=== PATIENT | female | born 1970 | race Caucasian/White ===

== ENCOUNTER 2018-04-08 09:21 | Emergency (ER) | payer BC ==
[2018-04-08 09:45] VITALS: BP 141/85
--- NOTE | 2018-04-08 10:58 | UC ---
Upper Extremity HPI - HPI Summary HPI Summary: 47-year-old female presents with right arm pain following a fall 2 days ago. States she tripped on a rug, fell forward landing on her right forearm. States yesterday had minimal pain and was able to work without any difficulty however today developed some swelling, pain in the distal forearm, and some numbness and tingling in her ulnar hand, ring and pinky fingers. Denies hitting head, loss of consciousness, chest pain, palpitations, dizziness, or weakness. - History of Current Complaint Chief Complaint: UCUpperExtremity Stated Complaint: R WRIST INJURY Time Seen by Provider: 04/08/18 10:47 Hx Obtained From: Patient Hx Last Menstrual Period: 03/18/18 ?: No Severity Initially: Mild Severity Currently: Moderate Pain Intensity: 6 Character: Throbbing Aggravating Factor(s): Movement, Lifting Alleviating Factor(s): Ice, Rest Associated Signs And Symptoms: Positive: Swelling, Bruising, Numbness/Tingling. Negative: Redness, Fever, Weakness Related History: Dominant Hand Right - Allergies/Home Medications Allergies/Adverse Reactions: Allergies Allergy/AdvReac Type Severity Reaction Status Date / Time amoxicillin Allergy Vomiting Verified 04/08/18 09:47 ciprofloxacin [From Cipro] Allergy Vomiting Verified 04/08/18 09:47 clavulanic acid Allergy Vomiting Verified 04/08/18 09:47 meperidine [From Demerol] Allergy Hives Verified 04/08/18 09:47 PMH/Surg Hx/FS Hx/Imm Hx Previously Healthy: Yes Endocrine History: Hypothyroidism Respiratory History: Asthma - Surgical History Surgical History: Yes Surgery Procedure, Year, and Place: Back surgery x3, lumbar alminectomy, and fusion 1991, Left humerus fracture, magdiel in place - Family History Family History: Noncontributory - Social History Occupation: Employed Full-time Lives: With Family Alcohol Use: Occasionally Substance Use Type: None Smoking Status (MU): Never Smoked Tobacco - Immunization History Most Recent Influenza Vaccination: 2015/2016 season Review of Systems Constitutional: Negative Skin: Bruising - Proximal ulnar forearm Eyes: Negative Respiratory: Negative Cardiovascular: Negative Motor: Negative Musculoskeletal: Other: - See history of present illness Neurological: Paresthesia - Ulnar right hand, right ring and pinky fingers Is Patient Immunocompromised?: No All Other Systems Reviewed And Are Negative: Yes Physical Exam Triage Information Reviewed: Yes Appearance: Well-Appearing, No Pain Distress, Well-Nourished Vital Signs: Initial Vital Signs Temp 97.9 F 04/08/18 09:42 Pulse 76 04/08/18 09:42 Resp 18 04/08/18 09:42 BP 141/85 04/08/18 09:42 Pulse Ox 100 04/08/18 09:42 Vital Signs Reviewed: Yes Respiratory: Positive: No respiratory distress Cardiovascular: Positive: Pulses Normal, Brisk Capillary Refill Musculoskeletal: Positive: Strength Intact, ROM Intact, Other: - Tenderness, ecchymosis, and mild swelling noted to the proximal right ulnar forearm. Full range of motion to elbow and wrist. No obvious deformity. Neurological: Positive: Alert, Muscle Tone Normal, Other: - Patient reports mildly decreased sensation to light touch to right ring and pinky fingers. Skin: Positive: Other - Bruising as noted above Diagnostics - Radiology No standard instances Xray Interpretation: No Acute Changes Radiology Interpretation Completed By: ED Physician, Radiologist Upper Extremity Course/Dx - Course Course Of Treatment: 47 year old female with right forearm pain s/p fall. Exam revealed large contusion to the proximal ulnar forearm with mild swelling. X- ray negative for fracture. Patient reports some sensation deficit along the ulnar nerve root consistent with a traumatic neuropathy. This is likely self- limiting and will resolve as contusion heals. Recommend conservative management and follow up with PCP if symptoms do not resolve. - Differential Dx/Diagnosis Provider Diagnoses: right forearm contusion, elevated blood pressure reading Discharge - Sign-Out/Discharge Documenting (check all that apply): Patient Departure All imaging exams completed and their final reports reviewed: Yes - Discharge Plan Condition: Stable Disposition: HOME Patient Education Materials: Contusion in Adults (ED) Referrals: Maurice Gonzalez MD [Primary Care Provider] - 5 Days (If no improvement) Additional Instructions: Your x-ray performed in the clinic today did not show any evidence of a fracture or dislocation. I suspect that your symptoms are from a contusion ( deep bruise) or possibly a mild sprain. Rest the arm as much as possible. Apply ice for 15-20 minutes 3-4 times a day to help reduce any swelling. X Sure to keep the arm elevated at the level of your heart to help keep swelling down. Use [id number] pain medication such as acetaminophen (Tylenol) or ibuprofen (Advil, Motrin) according to directions as needed for pain. Follow-up with your primary care provider in 5 days if symptoms do not improve. Your blood pressure was elevated in the clinic today. It is recommended that you follow up with your primary care provider within 4 weeks to have this rechecked. Seek immediate medical attention if you develop increased pain that is not managed with [id number] pain medications, worsening of the swelling, he started losing function of the arm wrist or hand, I have any worsening of the numbness and tingling. - Billing Disposition and Condition Condition: STABLE Disposition: Home - Attestation Statements Provider Attestation: Per institutional requirements, I have reviewed the chart, however, I was not consulted specifically or made aware of this patient by the midlevel provider. I did not personally evaluate, interact with , or disposition this patient.
--- NOTE | 2018-04-08 11:23 | RAD ---
HISTORY: pain s/p fall COMPARISONS: None VIEWS: 2 , Frontal and lateral views of the right forearm FINDINGS: BONE DENSITY: Normal. BONES: There is no displaced fracture. JOINTS: There is no arthropathy. ALIGNMENT: There is no dislocation. SOFT TISSUES: Unremarkable. OTHER FINDINGS: None. IMPRESSION: NO ACUTE OSSEOUS INJURY. IF SYMPTOMS PERSIST, RECOMMEND REPEAT IMAGING.
== END 2018-04-08 11:30 | disposition home or self-care (01) ==
LOC: UCEAST 09:21
DX: S50.11XA Contusion of right forearm, initial encounter (principal); W01.0XXA Fall on same level from slipping, tripping and stumbling without subsequent striking against object, initial encounter; Y93.9 Activity, unspecified; Y92.9 Unspecified place or not applicable; R03.0 Elevated blood-pressure reading, without diagnosis of hypertension; Z88.1 Allergy status to other antibiotic agents; Z88.5 Allergy status to narcotic agent; Z88.0 Allergy status to penicillin
CPT/HCPCS: 99211; G0463

== ENCOUNTER 2018-09-19 17:10 | Emergency (ER) | payer BC ==
[2018-09-19 17:44] VITALS: BP 150/103
--- NOTE | 2018-09-19 18:46 | ED ---
Breast Complaint - HPI Summary HPI Summary: 48-year-old female presents with left breast mass that noticed yesterday. She says she did not have a mass the previous weeks. States she's been lifting a lot of things. States she needs to obtain a mammogram this month anyways. Denies any family history of breast cancer. She states that it is tender when she touches it. No fevers. She had some redness last night that has since resolved. No chills. No history of MRSA. Has history of high blood pressure but is not currently on her medications as she ran out. - Allergy/Home Medications Allergies/Adverse Reactions: Allergies Allergy/AdvReac Type Severity Reaction Status Date / Time amoxicillin Allergy Vomiting Verified 09/19/18 17:45 ciprofloxacin [From Cipro] Allergy Vomiting Verified 09/19/18 17:45 clavulanic acid Allergy Vomiting Verified 09/19/18 17:45 meperidine [From Demerol] Allergy Hives Verified 09/19/18 17:45 PMH/Surg Hx/FS Hx/Imm Hx Endocrine/Hematology History: Reports: Hx Thyroid Disease - HYPO Denies: Hx Diabetes Cardiovascular History: Reports: Hx Hypertension - ran out of bp med over one week ago Respiratory History: Reports: Hx Asthma Denies: Hx Chronic Obstructive Pulmonary Disease (COPD) GI History: Denies: Hx Ulcer - Cancer History Cancer Type, Location and Year: Thyroid RADIATION Hx Chemotherapy: No Hx Radiation Therapy: Yes - THYROID - Surgical History Surgery Procedure, Year, and Place: Back surgery x3, lumbar alminectomy, and fusion 1991, Left humerus fracture, magdiel in place Infectious Disease History: No Infectious Disease History: Denies: Hx Hepatitis, Hx Human Immunodeficiency Virus (HIV), History Other Infectious Disease, Traveled Outside the [place] in Last 30 Days - Family History Known Family History: Family History: Noncontributory - Social History Alcohol Use: Occasionally Hx Substance Use: No Substance Use Type: Reports: None Hx Tobacco Use: No Smoking Status (MU): Never Smoked Tobacco Review of Systems Negative: Fever Negative: Chest Pain Negative: Shortness Of Breath Positive: Other - left breast mass All Other Systems Reviewed And Are Negative: Yes Physical Exam Triage Information Reviewed: Yes Vital Signs On Initial Exam: Initial Vitals Temp Pulse Resp BP Pulse Ox 99.4 F 97 12 150/103 99 09/19/18 17:39 09/19/18 17:39 09/19/18 17:39 09/19/18 17:39 09/19/18 17:39 Vital Signs Reviewed: Yes Appearance: Positive: Well-Appearing Skin: Positive: Warm, Dry Head/Face: Positive: Normal Head/Face Inspection Eyes: Positive: Normal, Conjunctiva Clear ENT: Positive: Pharynx normal Respiratory/Lung Sounds: Positive: Clear to Auscultation, Breath Sounds Present , Other - breast mass felt at 12 position that is mobile, no lymphadenopathy, no erythema Cardiovascular: Positive: Normal, RRR Musculoskeletal: Positive: Normal Neurological: Positive: Normal Psychiatric: Positive: Normal Diagnostics - Vital Signs Vital Signs Temp Pulse Resp BP Pulse Ox 09/19/18 17:39 99.4 F 97 12 150/103 99 - Laboratory Lab Statement: Any lab studies that have been ordered have been reviewed, and results considered in the medical decision making process. - Ultrasound No standard instances Ultrasound Interpretation Completed By: Radiologist Summary of Ultrasound Findings: IMPRESSION: No sonographic findings to correlate with patient's symptomatology. Specifically no left breast abscess or cyst. Breast Pain Course/Dx - Course Course Of Treatment: 48-year-old female presents with left breast mass that noticed yesterday. She says she did not have a mass the previous weeks. States she's been lifting a lot of things. States she needs to obtain a mammogram this month anyways. Denies any family history of breast cancer. She states that it is tender when she touches it. No fevers. She had some redness last night that has since resolved. No chills. No history of MRSA. Has history of high blood pressure but is not currently on her medications as she ran out. On exam has dense breast tissue felt on left breast. Has mass at 12 o 'clock position with no erythema. got ultrasound just to make sure no abscess and no abscess noted. Told to followed mammogram to have full diagnosis of the breast tissue. Prescribe hydrochlorothiazide which is what patient is currently on and will have follow-up with primary about blood pressure. Patient understands agrees with plan. 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 This patient was seen by the NERY. The patient was not presented to, seen by, or examined by me. -Uche
== END 2018-09-19 19:15 | disposition home or self-care (01) ==
LOC: UCEAST 17:10
DX: N63.20 Unspecified lump in the left breast, unspecified quadrant (principal); I10 Essential (primary) hypertension; Z88.1 Allergy status to other antibiotic agents; Z88.5 Allergy status to narcotic agent; Z88.0 Allergy status to penicillin
CPT/HCPCS: 99212; G0463